=== PATIENT | male | born 1990 | race Caucasian/White ===

== ENCOUNTER → 2021-09-22 | Outpatient (CLI) | payer OTHER ==
[~2021-09-22] MED LIST: DOXYCYCLINE HY100 MG PO
[2021-09-22 20:33] LABS: RED BLOOD COUNT 4.33 M/UL (4.20-5.50); WHITE BLOOD COUNT 7.3 K/UL (4.5-11.0)
[2021-09-22 21:14] LABS: BUN/CREATININE RATIO 27 (0-10)
[2021-09-24 08:16] LABS: ESTRADIOL <5.0 pg/mL (7.6-42.6); TESTOSTERONE, SERUM 235 ng/dL (264-916)
== END ==
LOC: LAB 20:06
PROVIDERS: Nurse Practitioner Family
DX: R53.83 Other fatigue (principal); E23.0 Hypopituitarism; Z79.899 Other long term (current) drug therapy
CPT/HCPCS: 80053; 80061; 82670; 84403; 84481; 85025; 85027; G0103

== ENCOUNTER 2021-11-11 16:06 | Emergency (ER) | payer OTHER ==
[2021-11-11 17:28] LABS: HEMOGLOBIN 14.3 gm/dl (14.0-17.5); RED BLOOD COUNT 4.6 M/UL (4.20-5.50); WHITE BLOOD COUNT 9.3 K/UL (4.5-11.0)
[2021-11-11 17:45] LABS: BUN/CREATININE RATIO 17 (0-10)
== END 2021-11-11 20:47 | disposition home or self-care (01) ==
LOC: ER1 16:06
PROVIDERS: Emergency Medicine
DX: E86.0 Dehydration (principal); F19.239 Other psychoactive substance dependence with withdrawal, unspecified; L98.9 Disorder of the skin and subcutaneous tissue, unspecified; F17.210 Nicotine dependence, cigarettes, uncomplicated; Z88.5 Allergy status to narcotic agent
CPT/HCPCS: 71045; 80053; 81001; 82550; 82553; 83874; 85025; 96372; 99284; J1885